=== PATIENT | female | born 1990 | race African-American/Black ===

== ENCOUNTER 2023-03-04 14:18 | Outpatient (AMB) | payer OTHER, SELFPAY ==
--- NOTE | 2023-03-04 14:25 | MHC.PC.OV ---
Vital Signs 03/04/23 14:27 Height 6 ft Weight 209 lb BMI 28.3 BP 120/70 Blood Pressure Location Lt brachial Position Sitting Pulse 86 Pulse Source Pulse Oximeter Pulse Oximetry (%) 98 Oxygen Delivery Method Room Air Intake Visit Reasons: New patient-Requesting physical Allergies No Known Allergies Allergy (Verified 03/04/23 14:28) Medication List - Last Reconciled 03/04/23 by Edilia Olmedo MD No Known Home Meds Tobacco use date assessed: 03/04/23 Dental Screening Dental Screen Date: 03/04/23 Did you have a dental visit in the last 12 months?: Yes Did you have a dental problem in the last 6 months where you did not have access to dental care?: Yes Was dental information given to patient?: Patient has dentist HPI New patient-Requesting physical HPI Details Patient is 32-year-old female came in today for a physical examination and establish care visit Patient moved from [place] few months ago. Complaining of feeling tired most of the day. Which is going on for a while Other than that patient does not have any complaints She is due for Pap smear OBGYN referral placed Lab order to be done fasting Follow-up after the labs if needed. PFSH Family History Father Substance use disorder Social History Housing: House Patient Tobacco Use Status: Never used Tobacco e-Cigarette/Vaping Use: Never Used service: Yes Current occupational status: employed Cognitive needs: No Hearing needs: No Vision needs: No Questionnaire PHQ-9 Over the last 2 weeks, how often have you been bothered by any of the following problems? 1. Little interest or pleasure in doing things: not at all 2. Feeling down, depressed, or hopeless: not at all 3. Trouble falling or staying asleep, or sleeping too much: several days 4. Feeling tired or having little energy: several days 5. Poor appetite or overeating: several days 6. Feeling bad about yourself - or that you are a failure or have let yourself or your family down: not at all 7. Trouble concentrating on things, such as reading the newspaper or watching television: not at all 8. Moving or speaking so slowly that other people could have noticed. Or the opposite - being so fidgety or restless that you have been moving around a lot more than usual: not at all 9. Thoughts that you would be better off or of hurting yourself in some way: not at all Total score: 3 Depression Screening Interpretation: Negative 36640 - PHQ-9 Billing: Yes Source: Developed by Drs. Teto Ramos, Shahla Patel, Eladio Beatty and colleagues, with an educational fadia from [employer]. Thrive Questionnaire Date Thrive assessed: 03/04/23 I am a: Patient What is your living situation today?: I have a steady place to live Within the past 12 months, did the food you bought not last and you didn't have the money to get more?: Never true Within the past 12 months, did you worry whether your food would run out before you got money to buy more?: Never true Do you have trouble paying for medicines?: No Do you have trouble getting transportation to medical appointments?: No Do you have trouble paying your heating and electricity bill?: No Do you have trouble taking care of your child, family member or friend?: No Do you have trouble with day-to-day activities such as bathing, preparing meals, shopping, managing finances, etc.?: No Are you currently unemployed and looking for a job?: No Are you interested in more education?: No AUDIT C Alcohol Use Questionnaire (AUDIT-C) 1. How often do you have a drink containing alcohol?: Monthly or less 2. How many drinks containing alcohol do you have on a typical day when you are drinking?: 1 or 2 3. How often do you have six or more drinks on one occasion?: Never Total Score: 1 ANUPAM-7 AMB Questionnaire ANUPAM-7 Date ANUPAM - 7 assessed: 03/04/23 Feeling nervous, anxious, or on edge: 0 = Not at all Not being able to stop or control worryin = Not at all Worrying too much about different things: 0 = Not at all Trouble relaxin = Not at all Being so restless that it is hard to sit still: 0 = Not at all Becoming easily annoyed or irritable: 0 = Not at all Feeling afraid as if something awful might happen: 0 = Not at all Total ANUPAM-7 score (0-4 normal; 5-9 mild; 10-14 moderate; 15-21 severe): 0 Source: Developed by Drs. Teto Ramos, Shahla Patel, Eladio Beatty and colleagues, with an educational fadia from [employer]. Review of Systems Const Denies chills, Denies fever(s) and Denies headache(s) Eyes Denies blurry vision ENT Denies headache(s), Denies nasal discharge, Denies nasal obstruction, Denies odynophagia and Denies sinus pain Card Denies chest pain at rest and Denies chest pain with activity Resp Denies cough and Denies hemoptysis GI Denies diarrhea, Denies odynophagia, Denies vomiting and Denies hematemesis Reports as per HPI Musc Denies abnormal gait Skin/Breast Reports as per HPI Neuro Denies Neuro-related abnormal movements, Denies Abnormal speech present, Denies abnormal gait, Denies headache(s) and Denies Sensory deficit (Neuro) Psych Denies mood swings and Denies paranoia Endo Reports as per HPI Uli/Lymph Reports as per HPI Aller/Immun Reports as per HPI Physical exam (Primary Care) Vital Signs: Last Vital Signs Pulse 86 03/04/23 14:27 BP 120/70 03/04/23 14:27 Pulse Ox 98 03/04/23 14:27 Oxygen Delivery Method Room Air 03/04/23 14:27 BMI result Body Mass Index 28.3 Tobacco/Smoking Status: Tobacco use Status Tobacco use date assessed 03/04/23 03/04/23 14:31 Patient Tobacco Use Status Never used Tobacco 03/04/23 14:31 e-Cigarette/Vaping Use Never Used 03/04/23 14:31 PHQ-9: PHQ-9 Score PHQ-9: Total score 3 03/04/23 14:38 Depression Screening Interpretation: Negative Thrive Assessment: Date of Thrive Assessment Date Thrive assessed 03/04/23 03/04/23 14:31 Const General: cooperative, comfortable and no acute distress Orientation/consciousness: patient oriented x3 HENMT Head: Yes normocephalic and Yes atraumatic Eyes General: appearance normal, both eyes and all related structures Pupils: Equal, round and reactive pupils present EOM: EOMs intact bilaterally Neck Neck: Yes supple and No lymphadenopathy Thyroid: Thyroid normal Lymphatic: no lymphadenopathy noted Resp Effort & Inspection: normal respiratory effort and able to speak in complete sentences Auscultation: clear to auscultation bilaterally Cardio Heart sounds: S1 normal heart sound present and S2 normal heart sound present GI Palpation (GI): Soft to palpation and nontender Auscultation: normal bowel sounds General: Yes no CVA tenderness Back/Spine/Pelvis Back: no CVA tenderness Skin General skin exam: elasticity normal and turgor normal Neuro General: patient oriented x3 and gait normal Cranial nerves: Yes Equal, round and reactive pupils present Speech: No Abnormal speech present Sensory Exam: No Sensory deficit (Neuro) Coordination: tandem gait normal and Romberg test negative Extrem General: Yes normal exam except as noted and No edema Assessment and Plan Assessment & Plan (1) Encounter for general adult medical examination with abnormal findings: Code(s): Z00. - Encounter for general adult medical examination with abnormal findings (2) Tired: Code(s): R53.83 - Other fatigue Plan Patient is 32-year-old female came in today for a physical examination and establish care visit Patient moved from [place] few months ago. Complaining of feeling tired most of the day. Which is going on for a while Other than that patient does not have any complaints She is due for Pap smear OBGYN referral placed Lab order to be done fasting Follow-up after the labs if needed. Orders: Orders Comprehensive [place]. Panel Fast Today R53.83 - Other fatigue, Z00. - Encounter for general adult medical examination with abnormal findings Lipid Panel Today R53.83 - Other fatigue, Z00. 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 Tired R53.83
[2023-03-04 14:27] VITALS: BP 120/70; PULSE 86; O2SAT 98; BMI 28.3
== END 2023-03-04 15:02 | disposition home or self-care (01) ==
PROVIDERS: Visit Provider Internal Medicine
DX: Z00.01 Encounter for general adult medical examination with abnormal findings (principal); R53.83 Other fatigue
CPT/HCPCS: 99385

== ENCOUNTER 2023-08-31 09:19 | Outpatient (AMB) | payer OTHER, SELFPAY ==
[2023-08-31 09:20] VITALS: BP 122/70; BMI 28.2
--- NOTE | 2023-08-31 09:20 | MHC.OFFVIS ---
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 She has a 9-year-old child. She has not sexually active right now and abstinence is working for her she has had a Nexplanon and Depo in the past but she would not use them again because of the side effects and weight gain. She gets normal regular periods and she uses an mansoor and she is noticing how she changes in her cycle but she has not put it all together yet and we did talk about it she has no concerns today she did have an abnormal Pap in the past. PFSH Family History Father Substance use disorder Social History Housing: House Patient Tobacco Use Status: Never used Tobacco e-Cigarette/Vaping Use: Never Used Patient : No service: Yes Current occupational status: employed Cognitive needs: No Hearing needs: No Vision needs: No Female Reproductive History Menstrual Age of Menarche: 17 Duration of menses: 3-5 days Date of last menstrual period: 08/06/23 (per patient''neg'') control method: none Total pregnancies: 2 Full term: 1 Date of last pap smear: 08/01/19 (per patient''neg'') History of abnormal pap smear: Yes (2016) Physical Exam Vital Signs: Last Vital Signs BP 122/70 08/31/23 09:20 BMI result Body Mass Index 28.2 Const General: healthy appearing, comfortable, no acute distress, well developed and alert Nutritional Appearance: average body habitus Orientation/consciousness: patient oriented x3 Limitations: no limitations HEENT Head: Yes normocephalic Neck Neck: Yes normal visual inspection Chest Chest palpation & inspection: normal inspection of the chest Breast/axilla inspection: normal inspection of the breasts and normal inspection of the axillae Breast/axilla palpation: normal palpation of the breasts and normal palpation of the axillae Resp Effort & Inspection: normal respiratory effort GI Inspection: Yes normal to inspection, No Abdominal wall edema and No distended Palpation (GI): Soft to palpation and nontender General: Yes bladder normal to palpation External Female Exam: normal external appearance and normal appearance of the urethra Speculum Exam - Vagina: normal appearance of the vagina, normal palpation and normal vaginal discharge Speculum Exam - Cervix: normal appearance of the cervix, normal palpation and nontender Bimanual exam- vagina & uterus: normal bimanual exam, normal palpation, uterine size normal, bladder normal to palpation, consistency normal, normal palpation, uterine mobility normal, uterine shape normal, No Cervical tenderness present, non-tender and no cervical motion tenderness Bimanual Exam- Adnexa, other: normal adnexae, no masses, normal and No adnexal tenderness Neuro General: patient oriented x3 Assessment & Plan Assessment & Plan (1) Encounter for routine gynecological examination: Code(s): Z01.419 - Encounter for gynecological examination (general) (routine) without abnormal findings (2) Hx of abnormal cervical Pap smear: Comment: in 2017,pap done 08/31/23. Code(s): Z87.42 - Personal history of other diseases of the female genital tract Plan -----Discussed in this visit the following: healthy balanced diet, regular and consistent exercise, getting recommended health screens, doing the best she can for her particular health concerns, kegel exercises, pap smear screening and followup recommendations, mammography screening and SBE, normal changes in cycles in her life stage--- .----I reviewed available options for Control Methods and their associated side effect profiles. In particular, we discussed the method most of interest to her. Currently she is abstinent and that is working for her reviewed the use of condoms and also reviewed her cycle and fertility awareness to add that to her self knowledge and repertoire In for portal given Orders: Orders Bacterial Vaginosis Panel Today Z20.2 - Contact with and (suspected) exposure to infections with a predominantly sexual mode of transmission CT NG by PCR Today Z01.419 - Encounter for gynecological examination (general) (routine) without abnormal findings Pap Smear Today Z01.419 - Encounter for gynecological examination (general) (routine) without abnormal findings Coding Level of Care Code New Pt Prev Care 18-39yr(10694 Diagnoses Encounter for routine gynecological examination Z01.419 Hx of abnormal cervical Pap smear Z87.42
== END 2023-08-31 10:39 | disposition home or self-care (01) ==
LOC: HO.HWSM 09:19
PROVIDERS: Visit Provider Advanced Practice Midwife
DX: Z01.419 Encounter for gynecological examination (general) (routine) without abnormal findings (principal); Z87.42 Personal history of other diseases of the female genital tract
CPT/HCPCS: 99385

== ENCOUNTER 2023-08-31 09:19 | Outpatient (REF) | payer OTHER, SELFPAY ==
[2023-09-01 11:44] LABS: CT PCR NOT DETECTED (Not Detect.); NG PCR NOT DETECTED (Not Detect.)
[2023-09-01 14:08] LABS: BV Int Neg Control Negative (Negative); BV Int Pos Control Positive (Positive)
[2023-09-06 18:09] LABS: HPV mRNA E6/E7 rflx Not Detected (Not Detected)
== END 2023-08-31 09:20 | disposition home or self-care (01) ==
LOC: HO.LAB 09:19
PROVIDERS: Visit Provider Advanced Practice Midwife
DX: Z01.419 Encounter for gynecological examination (general) (routine) without abnormal findings (principal); Z20.2 Contact with and (suspected) exposure to infections with a predominantly sexual mode of transmission; Z87.42 Personal history of other diseases of the female genital tract
CPT/HCPCS: 0353U; 87480; 87510; 87624; 87660; 88142

== ENCOUNTER 2023-11-29 08:21 | Outpatient (AMB) | payer OTHER, SELFPAY ==
[2023-11-29 08:27] VITALS: BP 122/94; PULSE 70; O2SAT 99; BMI 28.0
--- NOTE | 2023-11-29 08:27 | A.OFFPC_ITS ---
Vital Signs 3 11/29/23 08:27 Height 6 ft Weight 206 lb 6 oz BMI 28.0 BP 122/94 H Blood Pressure Location Rt brachial Position Sitting Pulse 70 Pulse Source Pulse Oximeter Pulse Oximetry (%) 99 Oxygen Delivery Method Room Air Intake Visit Reasons: Muscle soreness Allergies No Known Allergies Allergy (Verified 11/29/23 08:30) Medication List - Last Reconciled 11/29/23 by Edilia Olmedo MD No Known Home Meds Tobacco use date assessed: 11/29/23 Dental Screening Dental Screen Date: 11/29/23 Did you have a dental visit in the last 12 months?: Yes Did you have a dental problem in the last 6 months where you did not have access to dental care?: No Was dental information given to patient?: Patient has dentist HPI Muscle soreness 2 HPI0 Details Patient is a 33-year-old female who was seen in March of last year for her initial establish care visit 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 with food for 10 days to 2 weeks If that does not relieve the soreness done physical therapy will be considered Patient also has not done labs ordered at her last visit on physical examination Encouraged patient to do them as soon as possible. PFSH Family History Father Substance use disorder Social History Housing: House Patient Tobacco Use Status: Never used Tobacco e-Cigarette/Vaping Use: Never Used service: Yes Current occupational status: employed Cognitive needs: No Hearing needs: No Vision needs: No Female Reproductive History Menstrual Age of Menarche: 17 Questionnaire PHQ-9 Over the last 2 weeks, how often have you been bothered by any of the following problems? 1. Little interest or pleasure in doing things: not at all 2. Feeling down, depressed, or hopeless: not at all 3. Trouble falling or staying asleep, or sleeping too much: not at all 4. Feeling tired or having little energy: not at all 5. Poor appetite or overeating: not at all 6. Feeling bad about yourself - or that you are a failure or have let yourself or your family down: not at all 7. Trouble concentrating on things, such as reading the newspaper or watching television: not at all 8. Moving or speaking so slowly that other people could have noticed. Or the opposite - being so fidgety or restless that you have been moving around a lot more than usual: not at all 9. Thoughts that you would be better off or of hurting yourself in some way: not at all Total score: 0 Depression Screening Interpretation: Negative Depression Screening Done: Yes 32444 - PHQ-9 Billing: Yes Source: Developed by Drs. Teto Ramos, Shahla Patel, Eladio Beatty and colleagues, with an educational fadia from [employer]. Thrive Questionnaire Date Thrive assessed: 11/29/23 I am a: Patient What is your living situation today?: I have a steady place to live Within the past 12 months, did the food you bought not last and you didn't have the money to get more?: Never true Within the past 12 months, did you worry whether your food would run out before you got money to buy more?: Never true Do you have trouble paying for medicines?: No Do you have trouble getting transportation to medical appointments?: No Do you have trouble paying your heating and electricity bill?: No Do you have trouble taking care of your child, family member or friend?: No Do you have trouble with day-to-day activities such as bathing, preparing meals, shopping, managing finances, etc.?: No Are you currently unemployed and looking for a job?: No Are you interested in more education?: No Please select the resources that you would like help with: None Currently or been in a relationship where the following occur: no concerns reported THRIVE Score: 0 AUDIT C Alcohol Use Questionnaire (AUDIT-C) 1. How often do you have a drink containing alcohol?: 2-4 times a month 2. How many drinks containing alcohol do you have on a typical day when you are drinking?: 1 or 2 3. How often do you have six or more drinks on one occasion?: Never Total Score: 2 Score Reviewed/Action Taken: Yes ANUPAM-7 AMB Questionnaire ANUPAM-7 Date ANUPAM - 7 assessed: 11/29/23 Feeling nervous, anxious, or on edge: 0 = Not at all Not being able to stop or control worryin = Not at all Worrying too much about different things: 0 = Not at all Trouble relaxin = Not at all Being so restless that it is hard to sit still: 0 = Not at all Becoming easily annoyed or irritable: 0 = Not at all Feeling afraid as if something awful might happen: 0 = Not at all Total ANUPAM-7 score (0-4 normal; 5-9 mild; 10-14 moderate; 15-21 severe): 0 Source: Developed by Drs. Teto Ramos, Shahla Patel, Eladio Beatty and colleagues, with an educational fadia from [employer]. ANUPAM-7 Assessment Billing ANUPAM-7 Assessment Tool: ANUPAM-7 Assessment 03256 Review of Systems Const Denies chills and Denies fever(s) ENT Denies epistaxis and Denies nasal discharge Card Denies chest pain Resp Denies chest congestion, Denies cough and Denies hemoptysis GI Denies diarrhea and Denies nausea Skin/Breast Denies rash Neuro Reports no additional complaints Psych Reports no additional complaints Endo Reports no additional complaints Physical exam (Primary Care) Vital Signs: Last Vital Signs Pulse 70 11/29/23 08:27 BP 122/94 H 11/29/23 08:27 Pulse Ox 99 11/29/23 08:27 Oxygen Delivery Method Room Air 11/29/23 08:27 BMI result Body Mass Index 28.0 Tobacco/Smoking Status: Tobacco use Status Tobacco use date assessed 11/29/23 11/29/23 08:31 Patient Tobacco Use Status Never used Tobacco 11/29/23 08:28 e-Cigarette/Vaping Use Never Used 11/29/23 08:28 PHQ-9: PHQ-9 Score PHQ-9: Total score 0 11/29/23 08:45 Depression Screening Interpretation: Negative Thrive Assessment: Date of Thrive Assessment Date Thrive assessed 11/29/23 11/29/23 08:31 Currently or been in a relationship where the following occur: no concerns reported Const General: cooperative, comfortable and no acute distress Orientation/consciousness: patient oriented x3 HENMT Head: Yes normocephalic Eyes General: appearance normal, both eyes and all related structures Neck Neck: Yes supple Resp Effort & Inspection: normal respiratory effort, no cough and no stridor Skin General skin exam: turgor normal Neuro General: patient oriented x3, tone normal and moves all extremities Extrem Right lower extremity: no edema Left lower extremity: no edema Upper/lower leg/hip images: 2 1. 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 with food for 10 days to 2 weeks If that does not relieve the soreness done physical therapy will be considered Patient also has not done labs ordered at her last visit on physical examination Encouraged patient to do them as soon as possible. Medications: New 2 naproxen Take it with food 500 mg PO BID 30 tabs 0RF pain 15 days Coding Level of Care Code Est Pt Level 3 (33947) Diagnoses Strain of muscle of right groin region S39.011A Additional Codes ANUPAM-7 Assessment Billing - ANUPAM-7 Assessment Tool: ANUPAM-7 Assessment 15458 ([id number])
== END 2023-11-29 08:56 | disposition home or self-care (01) ==
PROVIDERS: Visit Provider Internal Medicine
DX: S39.011A Strain of muscle, fascia and tendon of abdomen, initial encounter (principal)
CPT/HCPCS: 99213